=== PATIENT | female | born 2000 | race Two or more races ===

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

== ENCOUNTER 2023-11-12 14:54 | Emergency (ER) | payer MEDICAID ==
[~2023-11-12] VITALS: Ht 154.9 cm; Wt 61.6 kg
[2023-11-12 15:26] VITALS: BP 131/54; PULSE 97; RESP 16; TEMP 98.9; O2SAT 97
[2023-11-12] MEDS ORDERED: CEPH500C PO (15:36)
[2023-11-12] MEDS ORDERED: AMOX875T3 PO (15:36)
[2023-11-12] MEDS ORDERED: NAPR-746 PO (15:36)
[2023-11-12] MEDS ORDERED: TRIA0.02 TOP (15:43)
== END 2023-11-12 15:49 | disposition home or self-care (01) ==
LOC: ER 14:54
DX: S40.862A Insect bite (nonvenomous) of left upper arm, initial encounter (principal); H66.91 Otitis media, unspecified, right ear; Z79.899 Other long term (current) drug therapy; W57.XXXA Bitten or stung by nonvenomous insect and other nonvenomous arthropods, initial encounter; Y93.89 Activity, other specified; Y92.89 Other specified places as the place of occurrence of the external cause; Y99.8 Other external cause status

== ENCOUNTER 2024-07-11 23:31 | Inpatient (IN) | payer SELFPAY ==
[~2024-07-11] VITALS: Ht 154.9 cm; Wt 65.7 kg
[~2024-07-11 23:31] MED LIST: AMOX875T3 PO; NAPR-746 PO; TRIA0.02 TOP
[2024-07-12 00:58] LABS: Basophils # (auto) 0.1 10 ^3/uL (0-0.2); Basophils % (auto) 0.5 % (0.0-2.0); Eosinophils # (auto) 0 10 ^3/uL (0-0.8); Eosinophils % (auto) 0.2 % (0.0-7.0); Hematocrit 37.7 % (36.0-46.0); Hemoglobin 12.8 g/dL (12.2-16.2); Lymphocytes # (auto) 2.7 10 ^3/uL (0.4-5.4); Lymphocytes % (auto) 18.1 % (10.0-50.0); Mean Corpuscular Hemoglobin 29.1 pg (28.0-32.0); Mean Corpuscular Hgb Conc. 33.9 g/dL (32.0-36.0); Monocytes # (auto) 1.1 10 ^3/uL (0-1.3); Monocytes % (auto) 7.5 % (0.0-12.0); Neutrophils % (auto) 73.7 % (37.0-80.0); Nucleated Red Blood Cells % 0.2 %; Platelet Count (auto) 311 10^3/uL (140-450); Red Blood Cells 4.39 10^6/uL (4.0-5.20); Red Cell Distribution Width 12.7 % (11.8-14.3); White Blood Cell 14.9 10^3/uL (4.4-10.8)
--- NOTE | 2024-07-12 01:07 | DVH ---
CT BRAIN WITHOUT CONTRAST HISTORY: GEN WEAK TECHNIQUE: Axial scans were obtained from the skull base through the vertex without contrast. Sagitta l and coronal reformats were generated. One or more of the following radiation dose reduction techniq ues were used for this examination: automated exposure control, adjustment of the mA and/or kV accord ing to patient size, use of iterative reconstruction technique. COMPARISON: HEAD WITHOUT CONTRAST on DOS: 11/21/19 FINDINGS: Streak artifact somewhat limits evaluation of the left temporal regions and posterior fossa. As visualized, no definite acute intracranial hemorrhage or evidence of large vessel territorial infa rction is identified at this time. No midline shift. The basilar cisterns are patent. Salazar-white dif ferentiation appears relatively preserved. The visualized paranasal sinuses and mastoid air cells are clear. No grossly displaced calvarial abno rmalities identified. IMPRESSION: No acute intracranial findings as visualized. HS:Y
[2024-07-12 01:16] LABS: Alanine Aminotransferase 14 U/L (7-40); Albumin 4.8 g/dL (3.2-4.8); Alkaline Phosphatase 73 U/L (46-116); Anion Gap 9 (5-15); Aspartate Aminotransferase 14 U/L (13-40); BUN/Creatinine Ratio 15.3 (10.0-20.0); Blood Urea Nitrogen 11 mg/dL (9-23); Carbon Dioxide 23 mmol/L (20-31); Chloride 106 mmol/L (98-107); Glucose 87 mg/dL (74-106); Potassium 3.5 mmol/L (3.5-5.1); Sodium 138 mmol/L (136-145); Total Protein 7.2 g/dL (5.7-8.2)
[2024-07-12 01:17] LABS: Bilirubin, Total 0.4 mg/dL (0.2-1.0)
[2024-07-12 01:54] LABS: Urine Bacteria FEW /hpf (None Seen); Urine Blood Negative /uL (Negative); Urine Clarity Turbid (Clear); Urine Color Light-Yellow (Yellow); Urine Protein, UAD Negative (Negative); Urine Specific Gravity 1.013 (1.001-1.035); Urine Squamous Epithelial Cell FEW /hpf (<5); Urine Urobilinogen Normal (Negative); Urine WBC 4 /HPF (0-5); Urine pH 6.5 (5.0-9.0)
[2024-07-12 02:07] LABS: Amphetamine Screen, Urine Neg (NEGATIVE); Barbiturate Scree,Urine Neg (NEGATIVE); Benzodiazephine Screen, Urine Neg (NEGATIVE); Cannabinoid Screen, Urine Neg (NEGATIVE); Cocaine Screen, Urine Neg (NEGATIVE); Opiate Scree,Urine Neg (NEGATIVE); Phencyclidine Screen, Urine Neg (NEGATIVE)
[2024-07-12] MEDS: SODIUM CHLORIDE 0.9% 1,000 ML IV ONE (02:17)
[2024-07-12] MEDS: methylPREDNISolone SOD SUCC 125 MG/2 ML VL IV ONE (02:21)
[2024-07-12 02:26] LABS: Erythrocyte Sedimentation Rate 2 mm/hr (0-20)
--- NOTE | 2024-07-12 03:24 | ED.PDOC ---
HPI (NEURO) HPI Comments 24-year-old female complaining of generalized weakness. Patient states he had approximate 10:00 pm. she felt a cramping sensation in her head. She was at work. States she went to the bathroom and felt very weak as if she was going to pass out. She called four morphine come help her. She had to be lifted into her car because her legs were stiff and she could not move. Upon arrival to the emergency department patient unable to walking, brought in by wheelchair. Unable to lift her legs or lift her arms. Patient was speaking in a very soft voice. Tearful. Denies any prior history of neurologic disorders. States she was had episodes of syncope in the past. Says over the last three or four days she has been having some stomach pains, diarrheas a chills. Chief Complaint: General Weakness Time Seen by MD: 00:01 Primary Care Provider: NONE Reviewed Notes: Nurses Notes Information Source: Patient Mode of Arrival: Wheelchair Severity: Moderate Past Medical History PAST MEDICAL HISTORY: Denies Surgical History: Denies all surgeries DICE SPOTTER History: No Pertinent DICE SPOTTER History Family History Family History: Reviewed,noncontributory to illness Social History Smoker: Non-Smoker Alcohol: Denies ETOH Use Drugs: Denies Drug Use Lives In: Home Constitutional: denies: chills, diaphoresis, fatigue, fever, malaise, sweats, weakness, others EENTM: denies: blurred vision, double vision, ear bleeding, ear discharge, ear drainage, ear pain, ear ringing, eye pain, eye redness, hearing loss, mouth pain, mouth swelling, nasal discharge, nose bleeding, nose congestion, nose avila n, photophobia, tearing, throat pain, throat swelling, voice changes, others Respiratory: denies: cough, hemoptysis, orthopnea, SOB at rest, shortness of breath, SOB with excertion, stridor, wheezing, others Cardiovascular: denies: chest pain, dizzy spells, diaphoresis, Dyspnea on exertion, edema, irregular heart beat, left arm pain, lightheadedness, palpitations, PND, syncope, others Gastrointestinal: denies: abdomen distended, abdominal pain, blood streaked bowels, constipated, diarrhea, dysphagia, difficulty swallowing, hematemesis, melena, nausea, poor appetite, poor fluid intake, rectal bleeding, rectal pain, vomiting, others Genitourinary: denies: abnormal vagina bleeding, burning, dyspareunia, dysuria, flank pain, frequency, hematuria, incontinence, pain, , vagina discharge, urgency, others Neurological: reports: numbness, tingling, weakness; denies: dizziness, fainting, headache, left sided numbness, left sided weakness, paresthesia, pre- existing deficit, right sided numbness, right sided weakness, seizure, speech problems, tremors, others Musculoskeletal: denies: back pain, gout, joint pain, joint swelling, muscle pain, muscle stiffness, neck pain, others Physical Exam General Appearance: Normal, Severe Distress HEENT: Normal ENT Inspection, Pharynx Normal, TMs Normal Neck: Non-Tender, Normal Inspection Respiratory: Chest Non-Tender, Lungs Clear, No Accessory Muscle Use, No Respiratory Distress, Normal Breath Sounds Cardiovascular: No Edema, No JVD, No Murmur, No Gallop, Normal Peripheral Pulses, Regular Rate/Rhythm Breast Exam: Deferred Gastrointestinal: No Organomegaly, Non Tender, No Pulsatile Mass, Normal Bowel Sounds, Soft Genitalia: Deferred Pelvic: Deferred Rectal: Deferred Extremities: No calf tenderness, Normal capillary refill, Normal inspection, No pedal edema Musculoskeletal : Apperance: Normal Neurologic: Alert, Motor Weakness, R/L Numbness Cerebellar Function: Normal Reflexes: Normal, NOT DONE Skin: Dry, Normal Color, Warm Lymphatic: No Adenopathy Was a procedure done? Was a procedure done?: No Differential Diagnosis (SZ) Seizure: N/A CVA: Lee's Palsy, CVA, Delirium Tremens, Drug Overdose, Electrolyte Imbalance General Weakness: Guillain-Milan, Hypoglycemia, Hypotension, Hypovolemia, Labyrinthitis, Pulmonary embolus X-Ray, Labs, Meds, VS Vital Signs Date Time Temp Pulse Resp B/P (MAP) Pulse Ox O2 Delivery O2 Flow Rate FiO2 07/12/24 00:43 94 20 126/78 (94) 97 07/11/24 23:46 98.7 100 16 128/70 (89) 99 Lab Test 07/12/24 01:28 07/12/24 00:26 Range/Units Urine Color Light-yellow Yellow Urine Clarity Turbid H Clear Urine pH 6.5 5.0-9.0 Urine Specific [place] 1.013 1.001-1.035 Urine Protein Negative Negative Urine Ketones Negative Negative Urine Blood Negative Negative /uL Urine Nitrite Negative Negative Urine Bilirubin Negative Negative Urine Urobilinogen Normal Negative mg/dL Urine Leukocyte Esterase 2+ Negative /uL Urine RBC 2 0 - 4 /hpf Urine Microscopic WBC 4 0-5 /HPF Urine Squamous Epithelial Cells Few <5 /hpf Urine Bacteria Few H None Seen /hpf Urine Glucose Normal Normal mg/dL Urine Opiates Screen Neg NEGATIVE Urine Fentanyl Screen Neg NEGATIVE Urine Barbiturates Screen Neg NEGATIVE Urine Phencyclidine Screen Neg NEGATIVE Urine Amphetamines Screen Neg NEGATIVE Urine Benzodiazepines Screen Neg NEGATIVE Urine Cocaine Screen Neg NEGATIVE Urine Cannabinoids Screen Neg NEGATIVE White Blood Count 14.9 H 4.4-10.8 10^3/uL Red Blood Count 4.39 4.0-5.20 10^6/uL Hemoglobin 12.8 12.2-16.2 g/dL Hematocrit 37.7 36.0-46.0 % Mean Corpuscular Volume 86.0 80.0-100.0 fL Mean Corpuscular Hemoglobin 29.1 28.0-32.0 pg Mean Corpuscular Hemoglobin Concent 33.9 32.0-36.0 g/dL Red Cell Distribution Width 12.7 11.8-14.3 % Platelet Count 311 140-450 10^3/uL Mean Platelet Volume 9.4 6.9-10.8 fL Neutrophils (%) (Auto) 73.7 37.0-80.0 % Lymphocytes (%) (Auto) 18.1 10.0-50.0 % Monocytes (%) (Auto) 7.5 0.0-12.0 % Eosinophils (%) (Auto) 0.2 0.0-7.0 % Basophils (%) (Auto) 0.5 0.0-2.0 % Neutrophils # (Auto) 11.0 H 1.6-8.6 10 ^3/uL Lymphocytes # (Auto) 2.7 0.4-5.4 10 ^3/uL Monocytes # (Auto) 1.1 0-1.3 10 ^3/uL Eosinophils # (Auto) 0 0-0.8 10 ^3/uL Basophils # (Auto) 0.1 0-0.2 10 ^3/uL Nucleated Red Blood Cells 0.2 % Erythrocyte Sedimentation Rate 2 0-20 mm/hr Sodium Level 138 136-145 mmol/L Potassium Level 3.5 3.5-5.1 mmol/L Chloride Level 106 98-107 mmol/L Carbon Dioxide Level 23 20-31 mmol/L Anion Gap 9 5-15 Blood Urea Nitrogen 11 9-23 mg/dL Creatinine 0.72 0.550-1.02 mg/dL Glomerular Filtration Rate Calc 121 >90 mL/min BUN/Creatinine Ratio 15.3 10.0-20.0 Serum Glucose 87 74-106 mg/dL Calcium Level 10.0 8.7-10.4 mg/dL Total Bilirubin 0.4 0.2-1.0 mg/dL Aspartate Amino Transferase (AST) 14 13-40 U/L Alanine Aminotransferase (ALT) 14 7-40 U/L Alkaline Phosphatase 73 46-116 U/L C-Reactive Protein High Sensitivity 0.03 <1.0 mg/dL Total Protein 7.2 5.7-8.2 g/dL Albumin 4.8 3.2-4.8 g/dL Current Medications Medications (Trade) Dose Ordered Sig/Anil Route Start Time Stop Time Status Last Admin Sodium Chloride 1,000 ml @ 1,000 mls/hr Q1H ONCE IV 07/12/24 02:00 07/12/24 02:59 DC 07/12/24 02:17 Methylprednisolone Sodium Succinate (Solu Medrol) 125 mg ONCE ONCE IV 07/12/24 02:00 07/12/24 02:01 DC 07/12/24 02:21 X-Ray, Labs, Meds, VS Comment Patient will be admitted for Neurology consult in the morning Patient is showing some mild improvement in her symptoms, she was talking in a ladder tone, answering questions appropriately, patient reportedly has better control of her arms but still feels weakness in her legs Upon assessment of the lower extremities patient is pedal motions are stronger than the initial assessment. Patient was using her arms to hold a cup of ice. Time of 1ST Reevaluation: 03:24 Reevaluation 1ST: Improved Patient Education/Counseling: Diagnosis, Treatment Family Education/Counseling: Diagnosis Departure 1 Departure Time of Disposition: 03:22 Impression: Primary Impression: Generalized weakness Additional Impressions: UTI (urinary tract infection) Qualified Codes: N30.00 - Acute cystitis without hematuria Ataxia Disposition: ADMITTED INPATIENT Condition: Fair Discharged With: Self Critical Care Note Critical Care Time?: No Stability Stability form required: No Heart Score Heart Score: Heart Score Response (Comments) Value History N/A 0 EKG N/A 0 Age N/A 0 Risk Factors N/A 0 Troponin N/A 0 Total 0 JAH SAMSON Jul 12, 2024 03:24
[2024-07-12 03:39] VITALS: PULSE 90; RESP 16; O2SAT 96
--- NOTE | 2024-07-12 07:50 | DVHHP2 ---
History of Present Illness Reason for Visit: Generalized weakness History of Present Illness Juliette Ramos is a 24-year-old female with no significant past medical history, who comes in with complaints of generalized weakness. Patient was at work last night when her symptoms began. She states it started with her head, then she began feeling weak and that she might pass out. She had to call for help and was assisted to her car due to her legs feeling stiff and difficulty moving them. Her family brought her to the hospital. On arrival she was having difficulty moving her bilateral upper and lower extremities. She complained of numbness and tingling to bilateral upper and lower extremities as well. Patient has a recent history of syncopal episodes for which she did not seek medical attention. Patient's symptoms have improved throughout the night. She will be admitted for further workup and neurology consult. Past Surgical History: None Family History: None Smoke: No ALCOHOL: rare Drugs: None Lives: with Family Domestic Violence: Neg Review of Systems Constitutional: No: Fever, Chills, Sweats, Weakness, Malaise, Other Eyes: No: Pain, Vision change, Conjunctivae inflammation, Eyelid inflammation, Other, Redness ENT: No: Ear pain, Ear discharge, Nose pain, Nose discharge, Nose congestion, Mouth pain, Mouth swelling, Throat pain, Throat swelling, Other Respiratory: No: Cough, Dry, Shortness of breath, SOB with excertion, Wheezing, Hemoptysis, Pleuritic Pain, Sputum, Wheezing, Other Cardiovascular: No: Chest Pain, Palpitations, Orthopnea, Paroxysmal Noc. Dyspnea, Edema, Lt Headedness, Other Gastrointestinal: No: Nausea, Vomiting, Abdominal Pain, Diarrhea, Constipation, Melena, Hematochezia, Other Genitourinary: No Dysuria, No Frequency, No Incontinence, No Hematuria, No Retention, No Other Musculoskeletal: No: other, neck pain, shoulder pain, arm pain, back pain, hand pain, leg pain, foot pain Skin: No: Rash, Lesions, Jaundice, Bruising, Other Neurological: Weakness (bilateral upper and lower extremities), Numbness (bilateral upper and lower extremities), Incoordination, Change in speech (soft spoken); No: Confusion, Seizures, Other Allergies: Coded Allergies: NO KNOWN ALLERGIES (Unverified , 11/21/19) Exam Vital Signs Vital Signs Date Time Temp Pulse Resp B/P (MAP) Pulse Ox O2 Delivery O2 Flow Rate FiO2 07/12/24 06:00 97.9 82 14 95/52 (66) 97 97.9 07/12/24 03:39 Room Air* 0 21 General Appearance: Alert, Oriented X3, Cooperative, moderate distress HEENT: Atraumatic, PERRLA Respiratory: Clear to auscultation, Normal air movement Cardiovascular: Regular rate, Normal S1, Normal S2, No murmurs Abdominal: Normal bowel sounds, Soft, No tenderness, No hepatospenomegaly Extremities: No cyanosis, No edema, Normal pulses, Other (weaknss, numbness, and tinglinig to bilateral upper and lower extremities) Skin: No rashes, No breakdown, No significant lesion Neuro: Other (weaknss, numbness, and tinglinig to bilateral upper and lower extremities, Unable to ambulate or move bilateral lower extremities) Psych/Mental Status: Mental status NL, Mood NL Labs/Xrays Labs Test 07/12/24 01:28 07/12/24 00:26 Range/Units Urine Color Light-yellow Yellow Urine Clarity Turbid H Clear Urine pH 6.5 5.0-9.0 Urine Specific [place] 1.013 1.001-1.035 Urine Protein Negative Negative Urine Ketones Negative Negative Urine Blood Negative Negative /uL Urine Nitrite Negative Negative Urine Bilirubin Negative Negative Urine Urobilinogen Normal Negative mg/dL Urine Leukocyte Esterase 2+ Negative /uL Urine RBC 2 0 - 4 /hpf Urine Microscopic WBC 4 0-5 /HPF Urine Squamous Epithelial Cells Few <5 /hpf Urine Bacteria Few H None Seen /hpf Urine Glucose Normal Normal mg/dL Urine Opiates Screen Neg NEGATIVE Urine Fentanyl Screen Neg NEGATIVE Urine Barbiturates Screen Neg NEGATIVE Urine Phencyclidine Screen Neg NEGATIVE Urine Amphetamines Screen Neg NEGATIVE Urine Benzodiazepines Screen Neg NEGATIVE Urine Cocaine Screen Neg NEGATIVE Urine Cannabinoids Screen Neg NEGATIVE White Blood Count 14.9 H 4.4-10.8 10^3/uL Red Blood Count 4.39 4.0-5.20 10^6/uL Hemoglobin 12.8 12.2-16.2 g/dL Hematocrit 37.7 36.0-46.0 % Mean Corpuscular Volume 86.0 80.0-100.0 fL Mean Corpuscular Hemoglobin 29.1 28.0-32.0 pg Mean Corpuscular Hemoglobin Concent 33.9 32.0-36.0 g/dL Red Cell Distribution Width 12.7 11.8-14.3 % Platelet Count 311 140-450 10^3/uL Mean Platelet Volume 9.4 6.9-10.8 fL Neutrophils (%) (Auto) 73.7 37.0-80.0 % Lymphocytes (%) (Auto) 18.1 10.0-50.0 % Monocytes (%) (Auto) 7.5 0.0-12.0 % Eosinophils (%) (Auto) 0.2 0.0-7.0 % Basophils (%) (Auto) 0.5 0.0-2.0 % Neutrophils # (Auto) 11.0 H 1.6-8.6 10 ^3/uL Lymphocytes # (Auto) 2.7 0.4-5.4 10 ^3/uL Monocytes # (Auto) 1.1 0-1.3 10 ^3/uL Eosinophils # (Auto) 0 0-0.8 10 ^3/uL Basophils # (Auto) 0.1 0-0.2 10 ^3/uL Nucleated Red Blood Cells 0.2 % Erythrocyte Sedimentation Rate 2 0-20 mm/hr Sodium Level 138 136-145 mmol/L Potassium Level 3.5 3.5-5.1 mmol/L Chloride Level 106 98-107 mmol/L Carbon Dioxide Level 23 20-31 mmol/L Anion Gap 9 5-15 Blood Urea Nitrogen 11 9-23 mg/dL Creatinine 0.72 0.550-1.02 mg/dL Glomerular Filtration Rate Calc 121 >90 mL/min BUN/Creatinine Ratio 15.3 10.0-20.0 Serum Glucose 87 74-106 mg/dL Calcium Level 10.0 8.7-10.4 mg/dL Total Bilirubin 0.4 0.2-1.0 mg/dL Aspartate Amino Transferase (AST) 14 13-40 U/L Alanine Aminotransferase (ALT) 14 7-40 U/L Alkaline Phosphatase 73 46-116 U/L C-Reactive Protein High Sensitivity 0.03 <1.0 mg/dL Total Protein 7.2 5.7-8.2 g/dL Albumin 4.8 3.2-4.8 g/dL CT BRAIN WITHOUT CONTRAST FINDINGS: Streak artifact somewhat limits evaluation of the left temporal regions and posterior fossa. As visualized, no definite acute intracranial hemorrhage or evidence of large vessel territorial infarction is identified at this time. No midline shift. The basilar cisterns are patent. Salazar-white differentiation appears relatively preserved. The visualized paranasal sinuses and mastoid air cells are clear. No grossly displaced calvarial abnormalities identified. IMPRESSION: No acute intracranial findings as visualized. Assessment/Plan Assessment/Plan Assessment: Generalized weakness, Possible autoimmune disorder, Leukocytosis, Plan: Admit to Tele, Neurology consult, MRI brain, CHRISTEN, CRP, ESR, Complement 3&4, IV antibiotics, Blood cultures, Plan discussed with: Patient Date of Service: Jul 12, 2024 Billing Provider: SUN BARRIENTOS Common Visit Codes: [id number] INP/OBS CARE (HIGH) SUN BARRIENTOS Jul 12, 2024 07:50
[2024-07-12 08:00] VITALS: PULSE 86; RESP 12; O2SAT 97
[2024-07-12] MEDS ORDERED: NITROGLYCERIN 0.4 MG SL TAB SL PRN (08:00)
[2024-07-12] MEDS ORDERED: MORPHINE SULFATE INJ 2 MG/ml SYRG IV PRN (08:00)
[2024-07-12] MEDS ORDERED: DOCUSATE SOD 100 MG CAP PO PRN (08:00)
[2024-07-12] MEDS ORDERED: ONDANSETRON HCL 4 MG/2 ML VIAL IV PRN (08:00)
[2024-07-12] MEDS ORDERED: ACETAMINOPHEN 325 MG TAB PO PRN (08:00)
[2024-07-12] MEDS ORDERED: HYDROcodone-ACET 5/325MG TAB PO PRN (08:00)
--- NOTE | 2024-07-12 09:02 | DVHINCON2 ---
Date of service: Jul 12, [address] Cooper Reason for Consultation Generalized weakness History of Present Illness Ms. Ramos is a 24 years old right-handed female otherwise healthy, her family brought her to the [facility] on 07/11/2024 with a chief complaint of general weakness. At this time, she is alert and oriented, she provided the following history Around 10:00 p.m. on 07/11/2024, when she was working, she developed intense painful muscle spasms in the right hand in that she could not move the right hand, then she went to the bathroom and she developed intense general weakness, dizziness/lightheadedness, blurry vision, intense hot feeling in her body, increased sweating, and she had feeling that she was passing out but she did not pass out. She came out and she could not stand, she had a weakness in bilateral face, a lot of numbness in the legs, arms, and she could not feel the right leg, as a result, she was not able to walk. She was noticed a lot of improvement in all her symptoms after she came to the hospital, but she was still feel weak, and still can hardly feel the right leg Since the end of 2023, she has had three passing out, one happened when she was standing up from the chair, another two happened when she was sitting, all preceded by dizziness/lightheadedness, increased sweating, blurry vision, she only passed for a few seconds in all the events, on waking up, she had brief mild confusion, but she was able to recognize people around her, place on waking up. The patient was did not seek medical attention She had abdominal pain, diarrhea in lasts a few days, otherwise denies recent acute illness UDS, 07/12/2024: Negative Urinalysis, 07/12/2024: WBC: 4, urine leukocyte esterase: 2+ WBC/HB/PLT/MCV, 07/12/2024: 14.9/12.8/311/86 CMP, 07/12/2024: Unremarkable CT head, 07/12/2024: No acute intracranial findings as visualized Past Medical History Denies major medical history Past Surgical History Denies surgery Family History She is not aware of any medical problem in the family, including depression, anxiety Social History She is no at tobacco smoker, she denies a history of alcohol or recreational [place] bstance abuse Allergies: Coded Allergies: NO KNOWN ALLERGIES (Unverified , 11/21/19) Home Meds Active Scripts Triamcinolone Acetonide (Triamcinolone Acetonide) 0.025 % Cre, 1 APPLIC TOP BID, #30 GRAMS Prov:ZARI COFFEY 11/12/23 Naproxen (Naproxen) 500 Mg Tab, 500 MG PO BID, #24 TAB Prov:ZARI COFFEY 11/12/23 Amoxicillin Trihydrate (Amoxicillin) 875 Mg Tab, 1 TAB PO BID, #20 TAB Prov:ZARI COFFEY 11/12/23 Current Medications Current Medications Medications (Trade) Dose Ordered Sig/Anil Route PRN Reason Start Time Stop Time Status Last Admin Sodium Chloride (Saline Lock Ns) 10 ml Q8HR IV 07/12/24 14:00 UNV Acetaminophen/ Hydrocodone Bitart ([place] 5/325MG Tab) 1 tab Q4HP PRN PO MODERATE PAIN (4-6 PAIN SCALE) 07/12/24 08:00 UNV Ondansetron HCl (Zofran) 4 mg Q4HP PRN IV NAUSEA / VOMITING 07/12/24 08:00 UNV Docusate Sodium (Colace Capsule) 100 mg BIDPRN PRN PO FOR CONSTIPATION 07/12/24 08:00 UNV Acetaminophen (Tylenol Tablet) 650 mg Q6HP PRN PO PAIN SCALE 1-3 OR TEMP>100.4 07/12/24 08:00 UNV Nitroglycerin (Ntrostat Sublingual) 0.4 mg Q5MINP PRN SL FOR CHEST PAIN 07/12/24 08:00 UNV Morphine Sulfate 2 mg Q30M PRN IV FOR CHEST PAIN 07/12/24 08:00 UNV Review of Systems As above, the other systems are negative Vital Signs Vital Signs Date Time Temp Pulse Resp B/P (MAP) Pulse Ox O2 Delivery O2 Flow Rate FiO2 07/12/24 08:00 77 12 95/49 (64) 97 07/12/24 08:00 97.8 97.8 07/12/24 08:00 Room Air* 0 21 Physical Exam GENERAL EXAM: General: the patient is well developed and nourished. No acute distress. HEENT: Normocephalic, neck is supple, no carotid bruits. No mass. RESPIRATORY: Normal respiratory effort with symmetrical lung expansion. Lungs clear to auscultation. CARDIOVASCULAR: Regular rate and rhythm with no murmurs. S1, S2. ABDOMEN: Soft, nontender, normal bowel sound Mild tenderness to palpation in the cervical spine NEUROLOGICAL: MENTAL STATUS: Awake and alert. Oriented to person, place, time and general circumstances. Able to give personal history. SPEECH, LANGUAGE, HIGHER CORTICAL FUNCTION: no aphasia or dysathria, she speaks with soft voice. CRANIAL NERVES: #2: Intact visual [place] to confrontation. The optic discs were sharp. #3,4,6: Pupils are equal, round and reactive. EOMs full and conjugate. No nystagmus. #5: Facial sensation intact in all three divisions bilaterally. Mandibular strength intact. #7: Facial muscles symmetrical and strength intact. #8: Hearing grossly normal to voice. #9,10: Uvula and soft palate rise in the midline. Swallow and voice are normal. #11: Trapezius and sternomastoid strength intact bilaterally. #12: Tongue midline. No fasciculations or atrophy. SENSATION: Difficulty examination. Questionable sensory level at T2-T3 dermatomes MOTOR: Normal tone in the upper and lower extremity. Normal muscle bulk. No fasciculations. No abnormal movements or posturing. Muscle strength of the major groups in the upper extremities is 3/5. Muscle strength of the major groups in the lower extremities is 3/5 with the right leg slightly weaker. REFLEXES: Deep tendon reflexes normal and symmetrical. No pathological reflexes. CEREBELLAR/COORDINATION: Deferred GAIT/STATION: deferred. Labs/Diagnostic Data Labs Test 07/12/24 08:39 07/12/24 01:28 07/12/24 00:26 Range/Units Urine Color Light-yellow Yellow Urine Clarity Turbid H Clear Urine pH 6.5 5.0-9.0 Urine Specific [place] 1.013 1.001-1.035 Urine Protein Negative Negative Urine Ketones Negative Negative Urine Blood Negative Negative /uL Urine Nitrite Negative Negative Urine Bilirubin Negative Negative Urine Urobilinogen Normal Negative mg/dL Urine Leukocyte Esterase 2+ Negative /uL Urine RBC 2 0 - 4 /hpf Urine Microscopic WBC 4 0-5 /HPF Urine Squamous Epithelial Cells Few <5 /hpf Urine Bacteria Few H None Seen /hpf Urine Glucose Normal Normal mg/dL Urine Test Negative Negative Urine Opiates Screen Neg NEGATIVE Urine Fentanyl Screen Neg NEGATIVE Urine Barbiturates Screen Neg NEGATIVE Urine Phencyclidine Screen Neg NEGATIVE Urine Amphetamines Screen Neg NEGATIVE Urine Benzodiazepines Screen Neg NEGATIVE Urine Cocaine Screen Neg NEGATIVE Urine Cannabinoids Screen Neg NEGATIVE White Blood Count 14.9 H 4.4-10.8 10^3/uL Red Blood Count 4.39 4.0-5.20 10^6/uL Hemoglobin 12.8 12.2-16.2 g/dL Hematocrit 37.7 36.0-46.0 % Mean Corpuscular Volume 86.0 80.0-100.0 fL Mean Corpuscular Hemoglobin 29.1 28.0-32.0 pg Mean Corpuscular Hemoglobin Concent 33.9 32.0-36.0 g/dL Red Cell Distribution Width 12.7 11.8-14.3 % Platelet Count 311 140-450 10^3/uL Mean Platelet Volume 9.4 6.9-10.8 fL Neutrophils (%) (Auto) 73.7 37.0-80.0 % Lymphocytes (%) (Auto) 18.1 10.0-50.0 % Monocytes (%) (Auto) 7.5 0.0-12.0 % Eosinophils (%) (Auto) 0.2 0.0-7.0 % Basophils (%) (Auto) 0.5 0.0-2.0 % Neutrophils # (Auto) 11.0 H 1.6-8.6 10 ^3/uL Lymphocytes # (Auto) 2.7 0.4-5.4 10 ^3/uL Monocytes # (Auto) 1.1 0-1.3 10 ^3/uL Eosinophils # (Auto) 0 0-0.8 10 ^3/uL Basophils # (Auto) 0.1 0-0.2 10 ^3/uL Nucleated Red Blood Cells 0.2 % Sodium Level 138 136-145 mmol/L Potassium Level 3.5 3.5-5.1 mmol/L Chloride Level 106 98-107 mmol/L Carbon Dioxide Level 23 20-31 mmol/L Anion Gap 9 5-15 Blood Urea Nitrogen 11 9-23 mg/dL Creatinine 0.72 0.550-1.02 mg/dL Glomerular Filtration Rate Calc 121 >90 mL/min BUN/Creatinine Ratio 15.3 10.0-20.0 Serum Glucose 87 74-106 mg/dL Calcium Level 10.0 8.7-10.4 mg/dL Total Bilirubin 0.4 0.2-1.0 mg/dL Aspartate Amino Transferase (AST) 14 13-40 U/L Alanine Aminotransferase (ALT) 14 7-40 U/L Alkaline Phosphatase 73 46-116 U/L Total Protein 7.2 5.7-8.2 g/dL Albumin 4.8 3.2-4.8 g/dL Assessment General weakness worse in the right lower extremity Diffuse paresthesia Coincidental sensory level in thoracic spine Reported syncope Plan/Recommendation Monitoring Supportive treatment Telemetry MRI brain MRI T-spine Syncopal precautions discussed More recommendation per clinical course Progress: Poor This medical document was created using an electronic medical record system with [employer] computerized dictation system. Although this document has been carefully reviewed, there may still be some phonetic and typographical errors. These areas are purely typographical due to imperfections of the software programs, and do not reflect any compromise in the patient's medical care. Plan discussed with: Patient, Other RAMÍREZ HELTON MD Jul 12, 2024 09:02
[2024-07-12 09:45] LABS: Erythrocyte Sedimentation Rate 4 mm/hr (0-20)
[2024-07-12] MEDS ORDERED: LORazepam 2MG/ML-1ML VIAL IV PRN (09:45)
--- NOTE | 2024-07-12 11:27 | DVH ---
PROCEDURE: MRI THORACIC SPINE WITHOUT INDICATION: Myelopathy Exam Date: 07/12/2024 10:46 AM COMPARISON: None TECHNIQUE: MRI thoracic spine without intravenous contrast. FINDINGS: The thoracic alignment is intact. The vertebral body heights are intact. The marrow signal is withi n normal limits. The thoracic cord signal and contour appear intact. There is no significant life science taxonomist ior disc disease, central canal or neural foraminal narrowing. The visualized paraspinal soft tissue s are otherwise unremarkable. IMPRESSION: 1. No significant posterior disc disease, central canal or neural foraminal narrowing. 2. No definite abnormal cord signal. If concern persists consider follow-up exam with intravenous co ntrast. HS:Y
[2024-07-12] MEDS: cefTRIAXone 1GM/50ML D5W 50 ML IV ONE (13:23)
[2024-07-12] MEDS: SODIUM CHLOR 0.9% PF (SALINE LOCK) 10ML VIAL/SYR IV SCH (14:01)
[2024-07-12 18:12] VITALS: BP 103/52; PULSE 71; RESP 20; TEMP 97.5; O2SAT 98
[2024-07-12 20:00] VITALS: PULSE 78; PULSE 87; RESP 18; O2SAT 98
[2024-07-12 20:38] VITALS: BP 99/50; PULSE 81; RESP 20; TEMP 97.9; O2SAT 98
[2024-07-13] VITALS (10 sets, daily range): BP systolic 90–109; BP diastolic 36–79; PULSE 64–107; RESP 15–20; TEMP 97.8–98.7; O2SAT 90–99
[2024-07-13 08:17] LABS: Basophils # (auto) 0.1 10 ^3/uL (0-0.2); Basophils % (auto) 0.4 % (0.0-2.0); Eosinophils # (auto) 0.1 10 ^3/uL (0-0.8); Eosinophils % (auto) 0.6 % (0.0-7.0); Hematocrit 37.6 % (36.0-46.0); Hemoglobin 12.5 g/dL (12.2-16.2); Lymphocytes % (auto) 32.5 % (10.0-50.0); Mean Corpuscular Hgb Conc. 33.3 g/dL (32.0-36.0); Mean Corpuscular Volume 87.1 fL (80.0-100.0); Monocytes # (auto) 0.9 10 ^3/uL (0-1.3); Monocytes % (auto) 7.8 % (0.0-12.0); Neutrophils # (auto) 7.1 10 ^3/uL (1.6-8.6); Neutrophils % (auto) 58.7 % (37.0-80.0); Platelet Count (auto) 268 10^3/uL (140-450); Red Blood Cells 4.31 10^6/uL (4.0-5.20); Red Cell Distribution Width 12.9 % (11.8-14.3); White Blood Cell 12.2 10^3/uL (4.4-10.8)
[2024-07-13 08:38] LABS: Alanine Aminotransferase 10 U/L (7-40); Alkaline Phosphatase 62 U/L (46-116); Anion Gap 7 (5-15); BUN/Creatinine Ratio 16.7 (10.0-20.0); Blood Urea Nitrogen 12 mg/dL (9-23); Calcium 9.8 mg/dL (8.7-10.4); Carbon Dioxide 26 mmol/L (20-31); Chloride 107 mmol/L (98-107); Glucose 94 mg/dL (74-106); Sodium 140 mmol/L (136-145); Total Protein 6.6 g/dL (5.7-8.2)
[2024-07-13 08:39] LABS: Albumin 4.2 g/dL (3.2-4.8)
[2024-07-13 08:40] LABS: Bilirubin, Total 0.6 mg/dL (0.2-1.0)
[2024-07-13 08:44] LABS: Aspartate Aminotransferase 9 U/L (13-40)
[2024-07-13] MEDS: cefTRIAXone 1GM/50ML D5W 50 ML IV SCH (08:55)
[2024-07-13 09:06] LABS: Complement C3 108 mg/dL (82-167)
--- NOTE | 2024-07-13 12:04 | DVHPN2 ---
Subjective The patient is seen and examined at bedside. No complaint today. Reviewed: Care Plan, H&P, Labs, Medications, Previous Orders, Radiology Changes from previous H/P or p: No Changes Eyes: No Pain, No Vision change, No Conjunctivae inflammation, No Eyelid inflammation, No Other, No Redness ENT: No Ear pain, No Ear discharge, No Nose pain, No Nose discharge, No Nose congestion, No Mouth pain, No Mouth swelling, No Throat pain, No Throat swelling, No Other Cardiovascular: No Chest Pain, No Palpitations, No Orthopnea, No Paroxysmal Noc. Dyspnea, No Edema, No Lt Headedness, No Other Respiratory: No Cough, No Dry, No Shortness of breath, No SOB with excertion, No Wheezing, No Hemoptysis, No Pleuritic Pain, No Sputum, No Other Gastrointestinal: No Nausea, No Vomiting, No Abdominal Pain, No Diarrhea, No Constipation, No Melena, No Hematochezia, No Other Genitourinary: No Dysuria, No Frequency, No Incontinence, No Hematuria, No Retention, No Other Musculoskeletal: No other, No neck pain, No shoulder pain, No arm pain, No back pain, No hand pain, No leg pain, No foot pain Skin: No Rash, No Lesions, No Jaundice, No Bruising, No Other Objective Vitals Vital Signs Date Time Temp Pulse Resp B/P (MAP) Pulse Ox O2 Delivery O2 Flow Rate FiO2 07/13/24 09:00 98.3 76 16 102/46 (64) 97 98.3 07/12/24 20:00 Room Air* 0 21 Intake/Output Intake and Output 07/13/24 07:00 Intake Total 150 ml Balance 150 ml Intake Oral 100 ml IV Total 50 ml # Voids 1 General Appearance: Alert, Oriented X3, Cooperative, No acute distress HEENT: Atraumatic, PERRLA, EOMI, Mucous membr. moist/pink Neck: Supple Lungs: Clear to auscultation, Normal air movement Cardiovascular: Regular rate, Normal S1, Normal S2, No murmurs, Gallops, Rubs Abdomen: Normal bowel sounds, Soft, No tenderness, No hepatospenomegaly Neuro: Cranial nerves 3-12 NL Psych/Mental Status: Mental status NL Medications Current Medications Medications Dose Ordered Sig/Anil Route Start Time Stop Time Status Last Admin Dose Admin Sodium Chloride 10 ml Q8HR IV 07/12/24 14:00 07/13/24 08:56 10 ML Acetaminophen/ Hydrocodone Bitart 1 tab Q4HP PRN PO 07/12/24 08:00 Ondansetron HCl 4 mg Q4HP PRN IV 07/12/24 08:00 Docusate Sodium 100 mg BIDPRN PRN PO 07/12/24 08:00 Acetaminophen 650 mg Q6HP PRN PO 07/12/24 08:00 Nitroglycerin 0.4 mg Q5MINP PRN SL 07/12/24 08:00 Morphine Sulfate 2 mg Q30M PRN IV 07/12/24 08:00 Lorazepam 1 mg ONCE PRN IV 07/12/24 09:45 Ceftriaxone Sodium 50 ml @ 100 mls/hr DAILY@09 IV 07/13/24 09:00 07/13/24 08:55 100 MLS/HR Laboratory Results Laboratory Tests 07/13/24 07:05 Chemistry Test 07/13/24 07:05 Albumin 4.2 g/dL (3.2-4.8) Calcium Level 9.8 mg/dL (8.7-10.4) Total Protein 6.6 g/dL (5.7-8.2) LFT Test 07/13/24 07:05 Alanine Aminotransferase (ALT) 10 U/L (7-40) Alkaline Phosphatase 62 U/L (46-116) Aspartate Amino Transferase (AST) 9 U/L (13-40) L Total Bilirubin 0.6 mg/dL (0.2-1.0) Urinalysis Test 07/12/24 01:28 Urine Color Light-yellow (Yellow) Urine Clarity Turbid (Clear) H Urine pH 6.5 (5.0-9.0) Urine Specific [place] 1.013 (1.001-1.035) Urine Protein Negative (Negative) Urine Ketones Negative (Negative) Urine Blood Negative /uL (Negative) Urine Nitrite Negative (Negative) Urine Bilirubin Negative (Negative) Urine Urobilinogen Normal mg/dL (Negative) Urine Leukocyte Esterase 2+ /uL (Negative) Urine RBC 2 /hpf (0 - 4) Urine Microscopic WBC 4 /HPF (0-5) Urine Squamous Epithelial Cells Few /hpf (<5) Urine Bacteria Few /hpf (None Seen) H Urine Glucose Normal mg/dL (Normal) Urine Test Negative (Negative) Labs and/or images reviewed: Labs reviewed by me Assessment/Plan Assessment/Plan Generalized weakness, Possible autoimmune disorder, Leukocytosis, Review MRI of the thoracic which remained negative for any acute process. I will order an MRI of the brain. Appreciate Dr. Vera, neurology input. We will get Physical therapy to get the patient out of bed and ambulate. Continuing with IV antibiotic This medical document was created using an electronic medical record system with [employer] direct computerized dictation system. Although this document has been carefully reviewed, there may still be some phonetic and typographical errors. These areas are purely typographical due to imperfections of the software programs, and do not reflect any compromise in the patient's medical care. Plan discussed with: Patient Date of Service: Jul 13, 2024 Billing Provider: LOUISE CONNOR MD Common Visit Codes: [id number] INP/OBS CARE(HIGH) LOUISE CONNOR MD Jul 13, 2024 12:04
[2024-07-13 14:07] LABS: Anti-Nuclear Antibody Direct Negative (Negative)
--- NOTE | 2024-07-13 23:29 | DVHPN2 ---
Progress Note - Dictate Date Seen: Jul 13, 2024 Medical Necessity Reason Pt with a Central, PICC or Fol: No Subjective Ms. Ramos is a 24 years old right-handed female otherwise healthy, her family brought her to the [facility] on 07/11/2024 with a chief complaint of general weakness. I have seen and examined the patient, I have discussed with her nurse, she was doing fine, she speak with normal voice, alert and fully oriented, she walks earlier today and she had shower Sensory and motor examination is normal UDS, 07/12/2024: Negative Urinalysis, 07/12/2024: WBC: 4, urine leukocyte esterase: 2+ WBC/HB/PLT/MCV, 07/12/2024: 14.9/12.8/311/86 CMP, 07/12/2024: Unremarkable CT head, 07/12/2024: No acute intracranial findings as visualized MRI T-spine, 07/12/2024: 1. No significant posterior disc disease, central canal or neural foraminal narrowing. 2. No definite abnormal cord signal. If concern persists consider follow-up exam with intravenous contrast vital signs Vital Sign Date Time Temp Pulse Resp B/P (MAP) Pulse Ox O2 Delivery O2 Flow Rate FiO2 07/13/24 21:00 98.7 89 19 106/56 (73) 97 98.7 07/13/24 20:00 Room Air* 0 21 Total Intake and Output 07/12/24 07/12/24 07/13/24 15:00 23:00 07:00 Intake Total 50 ml 100 ml Balance 50 ml 100 ml medications Current Medications Medications Dose Ordered Sig/Anil Route Start Time Stop Time Status Last Admin Dose Admin Sodium Chloride 10 ml Q8HR IV 07/12/24 14:00 07/13/24 22:08 10 ML Acetaminophen/ Hydrocodone Bitart 1 tab Q4HP PRN PO 07/12/24 08:00 Ondansetron HCl 4 mg Q4HP PRN IV 07/12/24 08:00 Docusate Sodium 100 mg BIDPRN PRN PO 07/12/24 08:00 Acetaminophen 650 mg Q6HP PRN PO 07/12/24 08:00 Nitroglycerin 0.4 mg Q5MINP PRN SL 07/12/24 08:00 Morphine Sulfate 2 mg Q30M PRN IV 07/12/24 08:00 Lorazepam 1 mg ONCE PRN IV 07/12/24 09:45 Ceftriaxone Sodium 50 ml @ 100 mls/hr DAILY@09 IV 07/13/24 09:00 07/13/24 08:55 100 MLS/HR objective General: the patient is well developed and nourished. No acute distress. Mild tenderness to palpation in the cervical spine MENTAL STATUS: Subjective SPEECH, LANGUAGE, HIGHER CORTICAL FUNCTION: no aphasia or dysathria, she speaks with soft voice. CRANIAL NERVES: Pupils are equal, round and reactive. EOMs full and conjugate. No nystagmus. Facial sensation intact in all three divisions bilaterally. Mandibular strength intact. Facial muscles symmetrical and strength intact. SENSATION: Normal, no sensory level MOTOR: Normal tone in the upper and lower extremity. Normal muscle bulk. No fasciculations. No abnormal movements or posturing. Muscle strength of the major groups in the extremities is 5/5. REFLEXES: Deep tendon reflexes normal and symmetrical. No pathological reflexes. CEREBELLAR/COORDINATION: Normal [id number] test GAIT/STATION: deferred laboratory and microbiology Laboratory Tests 07/13/24 07:05 Test 07/13/24 07:05 Range/Units Serum Glucose 94 74-106 mg/dL Problem List General weakness, improving Diffuse paresthesia, improving Sensory level in thoracic spine, resolved Reported syncope Urinary tract infection Assessment/Plan Monitoring Supportive treatment Telemetry MRI brain, she is not a candidate Antibiotics Syncopal precautions discussed Okay to discharge from a neurologic point of view More recommendation per clinical course This medical document was created using an electronic medical record system with [employer] dictation system. Although this document has been carefully reviewed, there may still be some phonetic and typographical errors. These areas are purely typographical due to imperfections of the software programs, and do not reflect any compromise in the patient's medical care Prognosis poor Plan discussed with: Patient, Other RAMÍREZ HELTON MD Jul 13, 2024 23:29
[2024-07-14] VITALS (7 sets, daily range): BP systolic 91–109; BP diastolic 47–66; PULSE 65–89; RESP 16–20; TEMP 97.4–98; O2SAT 98–100
[2024-07-14] MEDS ORDERED: LEVO500T91 PO (12:10)
--- NOTE | 2024-07-14 12:12 | DVHDS2 ---
Discharge Summary Date of Admission Jul 12, 2024 at 07:47 Date of Discharge: Jul 14, 2024 Labs/Diagnostic Data: Laboratory Results Test 07/13/24 07:05 07/12/24 11:14 07/12/24 08:39 07/12/24 01:28 White Blood Count 12.2 10^3/uL (4.4-10.8) Red Blood Count 4.31 10^6/uL (4.0-5.20) Hemoglobin 12.5 g/dL (12.2-16.2) Hematocrit 37.6 % (36.0-46.0) Mean Corpuscular Volume 87.1 fL (80.0-100.0) Mean Corpuscular Hemoglobin 29.0 pg (28.0-32.0) Mean Corpuscular Hemoglobin Concent 33.3 g/dL (32.0-36.0) Red Cell Distribution Width 12.9 % (11.8-14.3) Platelet Count 268 10^3/uL (140-450) Mean Platelet Volume 9.9 fL (6.9-10.8) Neutrophils (%) (Auto) 58.7 % (37.0-80.0) Lymphocytes (%) (Auto) 32.5 % (10.0-50.0) Monocytes (%) (Auto) 7.8 % (0.0-12.0) Eosinophils (%) (Auto) 0.6 % (0.0-7.0) Basophils (%) (Auto) 0.4 % (0.0-2.0) Neutrophils # (Auto) 7.1 10 ^3/uL (1.6-8.6) Lymphocytes # (Auto) 4.0 10 ^3/uL (0.4-5.4) Monocytes # (Auto) 0.9 10 ^3/uL (0-1.3) Eosinophils # (Auto) 0.1 10 ^3/uL (0-0.8) Basophils # (Auto) 0.1 10 ^3/uL (0-0.2) Nucleated Red Blood Cells 0.0 % Sodium Level 140 mmol/L (136-145) Potassium Level 4.0 mmol/L (3.5-5.1) Chloride Level 107 mmol/L (98-107) Carbon Dioxide Level 26 mmol/L (20-31) Anion Gap 7 (5-15) Blood Urea Nitrogen 12 mg/dL (9-23) Creatinine 0.72 mg/dL (0.550-1.02) Glomerular Filtration Rate Calc 121 mL/min (>90) BUN/Creatinine Ratio 16.7 (10.0-20.0) Serum Glucose 94 mg/dL (74-106) Calcium Level 9.8 mg/dL (8.7-10.4) Total Bilirubin 0.6 mg/dL (0.2-1.0) Aspartate Amino Transferase (AST) 9 U/L (13-40) Alanine Aminotransferase (ALT) 10 U/L (7-40) Alkaline Phosphatase 62 U/L (46-116) Total Protein 6.6 g/dL (5.7-8.2) Albumin 4.2 g/dL (3.2-4.8) Anti-Nuclear Antibody Screen Negative (Negative) Complement C3 108 mg/dL (82-167) Complement C4 25 mg/dL (12-38) Erythrocyte Sedimentation Rate 4 mm/hr (0-20) C-Reactive Protein High Sensitivity 0.04 mg/dL (<1.0) Urine Color Light-yellow (Yellow) Urine Clarity Turbid (Clear) Urine pH 6.5 (5.0-9.0) Urine Specific [place] 1.013 (1.001-1.035) Urine Protein Negative (Negative) Urine Ketones Negative (Negative) Urine Blood Negative /uL (Negative) Urine Nitrite Negative (Negative) Urine Bilirubin Negative (Negative) Urine Urobilinogen Normal mg/dL (Negative) Urine Leukocyte Esterase 2+ /uL (Negative) Urine RBC 2 /hpf (0 - 4) Urine Microscopic WBC 4 /HPF (0-5) Urine Squamous Epithelial Cells Few /hpf (<5) Urine Bacteria Few /hpf (None Seen) Urine Glucose Normal mg/dL (Normal) Urine Test Negative (Negative) Urine Opiates Screen Neg (NEGATIVE) Urine Fentanyl Screen Neg (NEGATIVE) Urine Barbiturates Screen Neg (NEGATIVE) Urine Phencyclidine Screen Neg (NEGATIVE) Urine Amphetamines Screen Neg (NEGATIVE) Urine Benzodiazepines Screen Neg (NEGATIVE) Urine Cocaine Screen Neg (NEGATIVE) Urine Cannabinoids Screen Neg (NEGATIVE) Other Laboratory Tests 07/13/24 07:05 Final Diagnosis/Problems List uti weakness Discharge Disposition: Home Discharge Instruct/Medications Diet: Regular Activity: No Restrictions, As Tolerated Follow Up/Referral: pcp 1-2 weeks Medications: levaquin 500mg daily Discharge Statement: "Patient was advised to return to the ER or call 911 if any headaches, dizziness, shortness of breath, chest pain, abdominal pain, bleeding, fevers, or worsening of medical condition. Patient was counseled about treatment plan, medications, possible side effects, patientverbalized understanding. All questions were answered to the best of my ability. This discharge took greater then 30 minutes in planning, reviewing documentation, counseling the patient, and discussing with other team members." ASSESSMENT ASSESSMENT Assessment uti weakness LOUISE CONNOR MD Jul 14, 2024 12:12
== END 2024-07-14 14:40 | disposition home or self-care (01) | DRG 690 ==
LOC: ER 23:31 → OVERFLOW 07-12 07:47 → TELE-WESTW 07-12 18:09
PROVIDERS: ADMIT Internal Medicine; ATTEND Internal Medicine
DX: N39.0 Urinary tract infection, site not specified (principal); M62.838 Other muscle spasm; Z79.899 Other long term (current) drug therapy; Z79.1 Long term (current) use of non-steroidal anti-inflammatories (NSAID); Z79.2 Long term (current) use of antibiotics
CPT/HCPCS: 36415; 70450; 72146; 80053; 80307; 81001; 81025; 85025; 85652; 86038; 86141; 86160; 87040; 96361; 96374; 97163; G0378